=== PATIENT | male | born 1970 ===

== ENCOUNTER 2017-08-02 10:35 | Emergency (ER) | payer MEDICAID, OTHER ==
[2017-08-02 10:35] VITALS: BMI 20.5
[2017-08-02 10:44] VITALS: BP 119/72; PULSE 77; RESP 20; TEMP 98.3; O2SAT 97
--- NOTE | 2017-08-02 10:54 | C.PDOC ---
History Of Present Illness Patient is a 47 y/o male who presents to the ED with a complaint of a mass on the back of the scalp. Patient states he "first noticed it about 1 week ago" when he was washing his hair. Denies any pain, trauma, or any other physical complaints at this time. Time Seen by Provider: 08/02/17 10:52 Chief Complaint (Nursing): Abnormal Skin Integrity History Per: Patient History/Exam Limitations: no limitations Onset/Duration Of Symptoms: Days (1 week ago) Current Symptoms Are (Timing): Still Present Recent travel outside of the [place]: No Past Medical History Reviewed: Historical Data, Nursing Documentation, Vital Signs Vital Signs: Last Vital Signs Temp 98.3 F 08/02/17 10:42 Pulse 77 08/02/17 10:42 Resp 20 08/02/17 10:42 BP 119/72 08/02/17 10:42 Pulse Ox 97 08/02/17 11:06 - Medical History PMH: No Chronic Diseases Surgical History: Appendectomy - [email or web address] Procedures INJECT/INFUSE NEC (12/06/13) Family History: States: No Known Family Hx - Social History Hx Tobacco Use: Yes (heavy smoker) Hx Alcohol Use: Yes Hx Substance Use: No Review Of Systems Constitutional: Negative for: Fever, Chills Skin: Positive for: Other (mass to back of scalp) Neurological: Negative for: Weakness, Numbness Physical Exam - Physical Exam Appears: Well, Non-toxic, No Acute Distress Skin: Other (2-3cm wide fluctuant subsutaneous mass to the base of the scalp; nontender, negative hair loss or signs of infection) Head: Atraumatic, Normacephalic Oral Mucosa: Moist ED Course And Treatment O2 Sat by Pulse Oximetry: 97 Progress Note: Patient comfortable and stable for discharge. Advised to follow up with PMD and possible plastic surgeon for further evaluation. Disposition Counseled Patient/Family Regarding: Diagnosis, Need For Followup - Disposition Referrals: [facility] [Outside] [facility] [Outside] Disposition: HOME/ ROUTINE Disposition Time: 10:53 Condition: GOOD Additional Instructions: AVOID IRRITATING AREA. FOLLOW UP PMD AND/OR PLASTIC SURGERY FOR FURTHER EVALUATION. RETURN IF REDNESS, FEVER, INCREASING PAIN. Forms: [employer] (Hebrew), General Discharge Instructions - Clinical Impression Clinical Impression: Scalp mass - Scribe Statement The provider has reviewed the documentation as recorded by the Ankitibchaparro Kellogg All medical record entries made by the Korin were at my direction and personally dictated by me. I have reviewed the chart and agree that the record accurately reflects my personal performance of the history, physical exam, medical decision making, and the department course for this patient. I have also personally directed, reviewed, and agree with the discharge instructions and disposition.
--- NOTE | 2017-08-02 10:56 | C.PDOC ---
History Of Present Illness Patient is a 47 y/o male who presents to the ED with a complaint of a mass on the back of the scalp. Patient states he "first noticed it about 1 week ago" when he was washing his hair. Denies any pain, trauma, or any other physical complaints at this time. Time Seen by Provider: 08/02/17 10:52 Chief Complaint (Nursing): Abnormal Skin Integrity History Per: Patient History/Exam Limitations: no limitations Onset/Duration Of Symptoms: Days (about 1 week ago) Current Symptoms Are (Timing): Still Present Recent travel outside of the [place]: No Past Medical History Reviewed: Historical Data, Nursing Documentation, Vital Signs Vital Signs: Last Vital Signs Temp 98.3 F 08/02/17 10:42 Pulse 77 08/02/17 10:42 Resp 20 08/02/17 10:42 BP 119/72 08/02/17 10:42 Pulse Ox 97 08/02/17 10:42 - Medical History PMH: No Chronic Diseases Surgical History: Appendectomy - [email or web address] Procedures INJECT/INFUSE NEC (12/06/13) Family History: States: No Known Family Hx - Social History Hx Tobacco Use: Yes (heavy smoker) Hx Alcohol Use: Yes Hx Substance Use: No Review Of Systems Constitutional: Negative for: Fever, Chills Skin: Positive for: Other (mass to back of scalp) Neurological: Negative for: Weakness, Numbness Physical Exam - Physical Exam Appears: Well, Non-toxic, No Acute Distress Skin: Other (2-3cm wide fluctuant subsutaneous mass to the base of the scalp; nontender, negative hair loss or signs of infection) Head: Atraumatic, Normacephalic Eye(s): bilateral: Normal Inspection Oral Mucosa: Moist ED Course And Treatment O2 Sat by Pulse Oximetry: 97 Progress Note: Patient comfortable and stable for discharge. Advised to follow up with PMD and possible plastic surgeon for further evaluation. Disposition - Disposition Forms: [employer] (Japanese) - Scribe Statement The provider has reviewed the documentation as recorded by the Scribe Kaylan Kellogg All medical record entries made by the Scribe were at my direction and personally dictated by me. I have reviewed the chart and agree that the record accurately reflects my personal performance of the history, physical exam, medical decision making, and the department course for this patient. I have also personally directed, reviewed, and agree with the discharge instructions and disposition.
== END 2017-08-02 11:07 | disposition home or self-care (01) ==
LOC: C.ER 10:35
DX: R22.0 Localized swelling, mass and lump, head (principal)